=== PATIENT | male | born 1990 | race African-American/Black ===

== ENCOUNTER 2018-05-27 08:56 | Emergency (ER) | payer OTHER ==
[~2018-05-27] VITALS: Ht 190.5 cm; Wt 79.4 kg
[2018-05-27 08:56] VITALS: BP 142/95
[2018-05-27] MEDS ORDERED: FLUORESCEIN SODIUM OPHTH 1 EA STRIP ONE (09:11)
[2018-05-27] MEDS ORDERED: TETRACAINE HCL 0.5% OPHTALMIC 15 ML BOTTLE OP ONE (09:30)
[2018-05-27] MEDS ORDERED: FLUORESCEIN SODIUM OPHTH 1 EA STRIP OP ONE (09:30)
== END 2018-05-27 09:28 | disposition home or self-care (01) ==
LOC: ER 09:08
DX: S05.02XA Injury of conjunctiva and corneal abrasion without foreign body, left eye, initial encounter (principal); X58.XXXA Exposure to other specified factors, initial encounter; Y93.84 Activity, sleeping; Y92.89 Other specified places as the place of occurrence of the external cause; Y99.8 Other external cause status
CPT/HCPCS: A4606; Z7610